=== PATIENT | male | born 1980 | race Caucasian/White ===

== ENCOUNTER 2018-08-04 13:02 | Emergency (ER) | payer OTHER ==
[~2018-08-04] VITALS: Ht 177.8 cm; Wt 68.0 kg
[~2018-08-04 13:02] MED LIST: DEPAKOTE 250MG250 M1 PO; DEPAKOTE ER500 MG PO; IBUPROFEN 800800 MG PO; NOHOMEMEDICATIONS; NORFLEX100 MG PO; ULTRAM 50MG TAB50 MG PO; ZYPREXA2.5 MG PO
[2018-08-04 14:07] LABS: ABSOLUTE BASOPHILS 0.1 thou/uL (0.0-0.2); ABSOLUTE EOSINOPHILS 0.2 thou/uL (0.0-0.7); ABSOLUTE LYMPHOCYTES 1.7 thou/uL (0.8-5.3); ABSOLUTE MONOCYTES 0.8 thou/uL (0.0-1.2); ABSOLUTE NEUTROPHILS 3.8 thou/uL (1.6-8.1); BASOPHILS 1.4 %; EOSINOPHILS 2.5 %; HEMATOCRIT 41.1 % (42.0-52.0); HEMOGLOBIN 14.1 gm/dL (14.0-18.0); LYMPHOCYTES 25.6 %; MCH 30.6 pg (26.0-34.0); MCHC 34.3 g/dL (28.0-37.0); MCV 89.4 fL (80.0-100.0); MONOCYTES 12.7 %; MPV 8.6 fl. (7.2-11.1); NUCLEATED RBCS 0 /100WBC; PLATELET COUNT* 284 thou/uL (150-400); POLYS 57.8 %; RDW-CV 13.3 % (10.5-14.5); WBC 6.6 thou/uL (4.0-11.0)
[2018-08-04 14:14] LABS: ANION GAP 8 mmol/L (7-16); BUN 19 mg/dL (7-18); CALCIUM 8.9 mg/dL (8.5-10.1); CHLORIDE 104 mmol/L (98-107); CO2 30 mmol/L (21-32); CREATININE 0.9 mg/dL (0.6-1.3); GLUCOSE 76 mg/dL (70-99); POTASSIUM 4.1 mmol/L (3.5-5.1); SODIUM 142 mmol/L (136-145)
[2018-08-04 14:24] LABS: ALBUMIN 3.7 g/dL (3.4-5.0); ALKALINE PHOSPHATASE 67 U/L (46-116); SGOT 26 U/L (15-37); SGPT 31 U/L (30-65); TOTAL BILIRUBIN 0.3 mg/dL (<0.1-1.0); TOTAL PROTEIN 7.6 g/dL (6.4-8.2); TROPONIN-I LEVEL <0.06 ng/mL (<0.06)
[2018-08-04] MEDS ORDERED: DEPAKOTE ER500 MG PO (14:36)
[2018-08-04 15:11] VITALS: BP 123/83
--- NOTE | 2018-08-05 16:34 | EKG ---
[place] [address] ELECTROCARDIOGRAM REPORT Name: ZACHARY STALLWORTH Room: [facility]#: [id number] Admission: 08/04/18 Attend Phys: Discharge: 08/04/18 Date of : 80 Report #: [id number] THIS REPORT FOR: //name// [facility] ED Test Date: 2018-08-04 Test Time: 13:56:56 Pat Name: ZACHARY STALLWORTH Department: Room: Gender: M Chief Estimator: Lovely DEAN : 1980 Requested By: Anny Jeffries Order Number: [id number] MD: Andrew Owens Measurements Intervals [place] Rate: 86 P: 37 WY: 131 QRS: 60 QRSD: 100 T: 37 QT: 354 QTc: 424 Interpretive Statements Sinus rhythm ST elev, probable normal early repol pattern Baseline wander in lead(s) V6 No previous ECG available for comparison Electronically Signed On 08-05-2018 16:34:22 CDT by Andrew Owens [email or web address] <ELECTRONICALLY SIGNED> By: Andrew Owens MD, [facility] 08/05/18 1634 [id number] [id number] Andrew Owens MD, [facility] /EPI
== END 2018-08-04 15:00 | disposition home or self-care (01) ==
LOC: M.ERS 13:02
PROVIDERS: Nurse Practitioner Family
DX: R51 Headache (principal); R56.9 Unspecified convulsions; G89.29 Other chronic pain; M54.9 Dorsalgia, unspecified; F17.210 Nicotine dependence, cigarettes, uncomplicated

== ENCOUNTER 2019-10-18 15:36 | Emergency (ER) | payer OTHER ==
[~2019-10-18] VITALS: Ht 177.8 cm; Wt 68.0 kg
[2019-10-18] MEDS ORDERED: ZPAK PO (16:30)
[2019-10-18] MEDS ORDERED: VENTOLIN HFA 1818 GM INH ×2 (16:30→16:51)
[2019-10-18 16:47] LABS: ABSOLUTE EOSINOPHILS 0.1 thou/uL (0.0-0.7); ABSOLUTE LYMPHOCYTES 1.7 thou/uL (0.8-5.3); ABSOLUTE MONOCYTES 0.6 thou/uL (0.0-1.2); ABSOLUTE NEUTROPHILS 4.3 thou/uL (1.6-8.1); BASOPHILS 0.4 %; EOSINOPHILS 1.1 %; HEMATOCRIT 36.9 % (42.0-52.0); HEMOGLOBIN 12.4 gm/dL (14.0-18.0); LYMPHOCYTES 25.2 %; MCHC 33.5 g/dL (28.0-37.0); MCV 89.4 fL (80.0-100.0); MONOCYTES 9.4 %; MPV 7.9 fl. (7.2-11.1); NUCLEATED RBCS 0 /100WBC; PLATELET COUNT* 482 thou/uL (150-400); POLYS 63.9 %; RBC 4.13 mil/uL (4.50-6.00); RDW-CV 15.6 % (10.5-14.5); WBC 6.8 thou/uL (4.0-11.0)
[2019-10-18] MEDS ORDERED: LEVAQUIN 500 M500 MG PO (16:51)
[2019-10-18 16:56] LABS: CALCIUM 8.7 mg/dL (8.5-10.1); CREATININE 0.9 mg/dL (0.6-1.3); POTASSIUM 4.7 mmol/L (3.5-5.1)
[2019-10-18 17:01] LABS: ALBUMIN 3.8 g/dL (3.4-5.0); TOTAL BILIRUBIN 0.3 mg/dL (<0.1-1.0); TOTAL PROTEIN 7.3 g/dL (6.4-8.2)
[2019-10-18 18:52] VITALS: BP 120/85
== END 2019-10-18 18:53 | disposition home or self-care (01) ==
LOC: M.ERS 15:36
PROVIDERS: Family Medicine
DX: J18.9 Pneumonia, unspecified organism (principal); G89.29 Other chronic pain; F17.210 Nicotine dependence, cigarettes, uncomplicated

== ENCOUNTER 2019-12-07 05:32 | Emergency (ER) | payer OTHER ==
[~2019-12-07] VITALS: Ht 177.8 cm; Wt 68.0 kg
[~2019-12-07 05:32] MED LIST changes: +LEVAQUIN 500 M500 MG PO; +VENTOLIN HFA 1818 GM INH; +ZPAK PO
[2019-12-07] MEDS ORDERED: LIDODERM1 EACH TOP ×2 (07:15→07:16)
[2019-12-07 07:24] VITALS: BP 148/98
--- NOTE | 2019-12-07 13:07 | EKG ---
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
== END 2019-12-07 07:26 | disposition home or self-care (01) ==
LOC: M.ERS 05:32
DX: R07.89 Other chest pain (principal); R06.02 Shortness of breath; F17.210 Nicotine dependence, cigarettes, uncomplicated